=== PATIENT | female | born 1970 | race Two or more races ===

== ENCOUNTER 2019-01-13 16:08 | Emergency (ER) | payer OTHER ==
[~2019-01-13] VITALS: Ht 162.6 cm; Wt 71.7 kg
[~2019-01-13 16:08] MED LIST: PRILOSEC20 MG ORAL
[2019-01-13] MEDS ORDERED: NKM (16:19)
[2019-01-13 16:25] VITALS: BP 154/88
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
[2019-01-13] MEDS ORDERED: Ketorolac 30mg Inj ONE (16:39)
[2019-01-13] MEDS ORDERED: Bacitracin Oint UD TOPIC ONE ×2 (16:40→16:45)
[2019-01-13] MEDS ORDERED: Ketorolac 30mg Inj IM ONE (16:45)
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
--- NOTE | 2019-01-13 17:28 | Diagnostic Imaging Report ---
EXAM: CT Head Without Intravenous Contrast CLINICAL HISTORY: PAIN TECHNIQUE: Axial computed tomography images of the head/brain without intravenous contrast. CTDI is 70 mGy and DLP is 1302 mGy-cm. One or more of the following dose reduction techniques were used: automated exposure control, adjustment of the mA and/or kV according to patient size, use of iterative reconstruction technique. COMPARISON: No relevant prior studies available. FINDINGS: Brain: Unremarkable. No hemorrhage. No edema. Ventricles: Unremarkable. No ventriculomegaly. Bones/joints: Unremarkable. No acute fracture. Soft tissues: Unremarkable. Sinuses: Unremarkable as visualized. Mastoid air cells: Unremarkable as visualized. IMPRESSION: No acute intracranial abnormality.
--- NOTE | 2019-01-13 18:16 | Diagnostic Imaging Report ---
EXAM: XR Left Shoulder Complete, 2 or More Views CLINICAL HISTORY: PAIN TECHNIQUE: Two or more views of the left shoulder. COMPARISON: No relevant prior studies available. FINDINGS: Bones/joints: No acute displaced fracture or dislocation. Soft tissues: Unremarkable. IMPRESSION: No acute displaced fracture or dislocation.
--- NOTE | 2019-01-13 18:16 | Diagnostic Imaging Report ---
EXAM: XR Sacrum and Coccyx, 2 or more Views CLINICAL HISTORY: PAIN TECHNIQUE: Frontal and lateral views of the sacrum and coccyx. COMPARISON: No relevant prior studies available. FINDINGS: Sacrum/coccyx: No acute displaced fracture. Vertebrae: Visualized lumbar vertebrae are unremarkable. Soft tissues: Unremarkable. IMPRESSION: No acute displaced fracture.
--- NOTE | 2019-01-13 18:16 | Diagnostic Imaging Report ---
EXAM: XR Lumbar Spine, 2 or 3 Views CLINICAL HISTORY: PAIN TECHNIQUE: Frontal and lateral views of the lumbar spine. COMPARISON: No relevant prior studies available. FINDINGS: Vertebrae: No acute displaced fracture or subluxation. Disc spaces: No acute findings. No significant narrowing. Soft tissues: Unremarkable. IMPRESSION: No acute displaced fracture or subluxation.
[2019-01-13] MEDS ORDERED: ROBAXIN500 MG PO (18:55)
[2019-01-13] MEDS ORDERED: BACITRACIN-P28.35 GM TP (18:55)
[2019-01-13] MEDS ORDERED: IBUPROFEN600 MG ORAL (18:55)
[2019-01-13] MEDS ORDERED: LIDOCAINE700 M1 TP (18:55)
[2019-01-13 19:04] VITALS: BP 136/82
--- NOTE | 2019-01-13 19:04 | NUR ---
ED Nurse Note: PT LAYING PEACEFULLY IN BED IN NAD. AOX4. PRESCRIPTIONS AND DISCHARGE PAPERWORK EXPLAINED TO PT. PT VERBALIZES UNDERSTANDING AND ALL QUESTIONS ANSWERED. PRESCRIPTIONS AND DISCHARGE PAPERWORK GIVEN TO PT AND ID WRISTBAND REMOVED. PT WALKED OUT OF ER WITH STEADY GAIT AND ALL BELONGINGS.
== END 2019-01-13 19:05 | disposition home or self-care (01) ==
LOC: EMR 16:38
DX: S09.90XA Unspecified injury of head, initial encounter (principal); S00.81XA Abrasion of other part of head, initial encounter; Y04.0XXA Assault by unarmed brawl or fight, initial encounter; Y92.520 Airport as the place of occurrence of the external cause; M54.5 Low back pain; M25.512 Pain in left shoulder; R51 Headache
CPT/HCPCS: 70450; 72020; 72220; 73030; 96372; 99284; J1885

== ENCOUNTER 2019-12-31 08:34 | Emergency (ER) | payer OTHER ==
[~2019-12-31] VITALS: Ht 160 cm; Wt 70.3 kg
[~2019-12-31 08:34] MED LIST changes: +BACITRACIN-P28.35 GM TP; +IBUPROFEN600 MG ORAL; +LIDOCAINE700 M1 TP; +NKM; +ROBAXIN500 MG PO
--- NOTE | 2019-12-31 09:00 | NUR ---
ED Nurse Note: Pt walked into ED w/ c/o OLIVEIRA x1 month 07/07 posterior section. Pt was diagnosed w/ hypertension a month ago amd states she's been dizzy and had slight blurry vision past few days. Pt BP 146/72. Pt is alert and orientedx4, ambulatory. She is set up on monitor.
[2019-12-31 09:08] VITALS: BP 146/72
--- NOTE | 2019-12-31 09:59 | Diagnostic Imaging Report ---
Indication: Headache Technique: Contiguous 5 mm thick transaxial imaging of the head obtained in a Siemens Sensation [address] scanner. Soft tissue and bone windows generated. Automatic Exposure Control was utilized. Total Dose length Product (DLP): 1457.[address] Dose Index Volume (CTDIvol): 62.7 mGy Comparison: 01/13/2019 Findings: The size and configuration of the cortical sulci, basal cisterns, and ventricles are within normal limits for age. There is no mass effect, midline shift, or edema identified. There is a focus of calcification within the left posterior parietal lobe consistent with cysticercosis. There is no evidence of acute hemorrhage or abnormal intra-axial or extra-axial fluid collections. The bones and soft tissues are unremarkable. Impression: Neurocysticercosis. No mass effect, edema or acute bleed. No change The CT scanner at [facility] is accredited by the [employer] and the scans are performed using dose optimization techniques as appropriate to a performed exam including Automatic Exposure control.
--- NOTE | 2019-12-31 10:12 | NUR ---
ED Nurse Note: Dr Goyal notified that pt OLIVEIRA still 6/10 pain.
[2019-12-31] MEDS ORDERED: Ketorolac 60mg Inj IM ONE (10:15)
[2019-12-31] MEDS ORDERED: DiphenhydrAMINE 25mg Tab ORAL ONE (10:15)
[2019-12-31] MEDS ORDERED: TRAMADOL HCL50 MG ORAL (11:43)
[2019-12-31 11:56] VITALS: BP 136/80
--- NOTE | 2019-12-31 11:57 | NUR ---
ED Nurse Note: Patient is being discharged from [facility]. Patient awake, alert, oriented x 4. D/C instruction and prescription given to patient. Patient verbalized understadning of it. Ptaient leaving the hospital with all her belongings.
--- NOTE | 2019-12-31 14:48 | Emergency Room Report ---
History of Present Illness General Chief Complaint: Headache Source: Patient Present Illness [facility] Patient presents with complaints of postoccipital headache ongoing for the past 1 month patient draws close association with her blood pressure And reports that the blood pressure medication does not appear to be working Denies any chest pain or focal weakness denies denies any visual changes Denies any vomiting or diarrhea denies any recent trauma Pain is a pressure sensation and at times throbbing Allergies: Coded Allergies: No Known Allergies (Unverified , 01/03/16) Patient History Past Medical History: see triage record Last Menstrual Period: HYSTERECTOMY X 6 MO AGO Reviewed Nursing Documentation: PMH: Agreed; PSxH: Agreed Nursing Documentation-PMH Past Medical History: No History, Except For Hx Hypertension: Yes Review of Systems All Other Systems: negative except mentioned in HPI Physical Exam Vital Signs Date Time Temp Pulse Resp B/P (MAP) Pulse Ox O2 Delivery O2 Flow Rate FiO2 12/31/19 08:39 97.9 64 16 152/97 (115) 95 Room Air Sp02 EP Interpretation: reviewed, normal General Appearance: well appearing, no apparent distress Head: normocephalic, atraumatic Eyes: bilateral eye PERRL, bilateral eye EOMI ENT: hearing grossly normal, normal pharynx, TMs + canals normal, uvula midline Neck: full range of motion, supple, no meningismus, no bony tend Respiratory: lungs clear, normal breath sounds, no rhonchi, no respiratory distress, no retraction, no accessory muscle use Cardiovascular #1: normal peripheral pulses, regular rate, rhythm, no edema, no gallop, no JVD, no murmur Gastrointestinal: normal bowel sounds, non tender, soft, no mass, no organomegaly, non-distended, no guarding, no hernia, no pulsatile mass, no rebound Genitourinary: no CVA tenderness Musculoskeletal: normal inspection Neurologic: motor strength/tone normal, 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, oriented x3 , sensory intact, responsive Psychiatric: mood/affect normal Skin: no rash Lymphatic: normal inspection, no adenopathy Medical Decision Making Diagnostic Impression: Primary Impression: headache ER Course Multiple differentials including but not limited to neurological, neurosurgical , infectious process is entertained Patient reports that she has not had any imaging with this problem Therefore CT imaging was obtained shows evidence of neurocysticercosis patient remains neurologically intact patient is on blood pressure medication and being treated as outpatient process a copy of her findings were provided for the patient Given the lack of any fever lack of any other neurological changes patient will have close outpatient follow-up CT/MRI/US Diagnostic Results CT/MRI/US Diagnostic Results : Impression CT headImpression: Neurocysticercosis. No mass effect, edema or acute bleed. No change Last Vital Signs Date Time Temp Pulse Resp B/P (MAP) Pulse Ox O2 Delivery O2 Flow Rate FiO2 12/31/19 11:56 98.3 73 16 136/80 99 Room Air Status: improved Disposition: HOME, SELF-CARE Condition: Improved Scripts Tramadol Hcl* (ULTRAM*) 50 Mg Tablet 50 MG ORAL Q6H PRN for For Pain, #20 TAB 0 Refills Prov: Lyly No DO 12/31/19 Referrals: NON PHYSICIAN (PCP) Patient Instructions: General Headache Without Cause, Cysticercosis Additional Instructions: Patient is provided with the discharge instructions notified to follow up with primary doctor in the next 2-3 days otherwise return to the er with any worsening symptoms. Please note that this report is being documented using [employer] technology. This can lead to erroneous entry secondary to incorrect interpretation by the dictating instrument. Lyly No DO Dec 31, 2019 14:48
== END 2019-12-31 11:56 | disposition home or self-care (01) ==
LOC: EMR 09:20
DX: B69.0 Cysticercosis of central nervous system (principal); R51 Headache; I10 Essential (primary) hypertension; Z90.710 Acquired absence of both cervix and uterus
CPT/HCPCS: 70450; 82962; 96372; Z7502; 99284